=== PATIENT | male | born 1940 | race Caucasian/White ===

== ENCOUNTER 2016-10-02 16:42 | Inpatient (IN) ==
--- NOTE | 2016-10-02 17:22 | Emergency Department Note ---
Dileep Dumont Brooke, am scribing for, and in the presence of, Beau Lerma MD 17:16 . Maria Guadalupe Dumont James D, MD, personally performed the services described in this documentation, ascribed by Mignon Falk in my presence, and it is both accurate and complete 717 . Arrival - Arrival Chief Complaint: Fever Stated Complaint: fever ED Nursing Triage Note: Transfer from [facility] ER for further evaluation of possible sepsis. c/o joint pain to right knee, hip, foot, hand and left elbow /hand. +subjective fever. Mode of Arrival: Stretcher Limitations: No Limitations Source: Patient, RN Notes Reviewed Time Seen by Provider: 10/02/16 17:10 - History of Present Illness HPI Narrative: Patient is a 75 year old male, brought into the ED by EMS from [facility], for further evaluation of sepsis. Patient went to [facility] with c/o right knee edema and right hip pain. Patient says the pain started Wednesday night. Patient temperature is currently 98.5 but he did have a temperature of 101.2 at [facility]. Patient's lower right leg is erythematous. He says he has also had a cough. He was given Cleocin prior to transfer. Patient has PMHx of HTN, afib, gout, and arthritis. Onset (ago): day(s) (3) Consistency: constant Allergies/Adverse Reactions: Allergies Allergy/AdvReac Type Severity Reaction Status Date / Time No Known Allergies Allergy Verified 10/02/16 16:53 Review of System - Review of System 12 point system: reviewed and no additional remarkable complaints except as stated - Review of System Constitutional: Present: fever Respiratory: Absent: respiratory distress Musculoskeletal: Present: other (Right hip pain) Skin: Present: other (Right knee edema and right lower leg erythema). Absent: rash Medical,Surgical,& Family Hx - Medical History Cardio: History of: Cardiac Dysrhythmia (A-fib), Hypertension Rheumatology: History of;: Gout Musculoskeletal: History of: Musculoskeletal Problems (Arthritis) - Surgical History Abdominal Surgeries: Surgical HX of: Hernia Repair - Social History Smoking Status: Never smoker Frequency of Alcohol Use: Occasionally Type of Drug Use: None Exam Vital Signs: Vital Signs Temperature 98.5 F 10/02/16 16:42 Pulse Rate 105 H 10/02/16 16:42 Respiratory Rate 20 10/02/16 16:42 Blood Pressure 113/73 10/02/16 16:42 O2 Sat by Pulse Oximetry 100 10/02/16 16:42 GENERAL: This is a chronically ill-appearing white male in no apparent distress. VITAL SIGNS: Reviewed HEENT: Head is atraumatic and normocephalic. Pupils are equal round react to light. Extraocular movements are intact. Oropharynx is benign with moist mucous membranes. NECK: Neck is soft and supple without tenderness. There are no masses. There is no lymphadenopathy. LUNGS: Lungs are clear to auscultation. Chest rises symmetrically. There is no chest wall tenderness. CV: Heart is regular rate and rhythm without murmurs rubs or gallops. ABDOMEN: Abdomen is soft, nontender to palpation. There are no abdominal abnormal masses palpated. There is no organomegaly. Bowel sounds are present and active. SKIN: Skin is warm and dry. Patient has erythema of the pretibial area of the right lower extremity. EXTREMITIES: Patient has swelling about the right knee and some tenderness to palpation. The patient has reproducible pain with passive range of motion. Patient holds his right knee in slight flexion. NEUROLOGIC: Awake alert and oriented 4. Cranial nerves II through XII are grossly intact. Motor is 4 over 5 in all extremities bilaterally. Course - Consultations Consultation #1: Discussed with hospitalist and will be admitted to their service. Time: 17:21 Results - Labs Lab Results: I have reviewed the patients labs - Diagnostic Findings Procedure: Chest x-ray: image reviewed by me, X-ray: image reviewed by me ( Right knee x-ray: Right hip x-ray:) Disposition Clinical Impression: SIRS (systemic inflammatory response syndrome), Possible gout, Elevated brain natriuretic peptide (BNP) level, Elevated lactate Case discussed with: patient Disposition: Still a Patient Condition: Stable
--- NOTE | 2016-10-02 17:51 | XRay Report ---
Right knee, 2 views History his right knee effusion swelling and fever There is a suprapatellar effusion There are moderate degenerative changes with patellofemoral and medial compartment joint space loss. There is question of chondrocalcinosis Prominent vascular calcifications present No acute fracture or aggressive periosteal reaction seen. No focal lytic areas identified. Impression: 1. Moderate degenerative changes 2. Moderate suprapatellar effusion 3. Prominent atherosclerotic changes 4. Questionable chondrocalcinosis PROCEDURE INTERPRETED AT [facility] DEPARTMENT OF RADIOLOGY Final Report Signed by: Dr. Ct Sharpe
--- NOTE | 2016-10-02 17:52 | XRay Report ---
Right hip, 2 views History is right hip pain There is mild osteophyte with minimal superior joint space loss Vascular calcifications present. No acute fracture or dislocation is seen Impression: Mild osteoarthritis PROCEDURE INTERPRETED AT [facility] DEPARTMENT OF RADIOLOGY Final Report Signed by: Dr. Ct Sharpe
--- NOTE | 2016-10-02 17:54 | XRay Report ---
History is fever Comparison 03/23/2012 The cardiac silhouette is enlarged. Patient is rotated No consolidated infiltrate is seen Impression: Moderate cardiomegaly PROCEDURE INTERPRETED AT [facility] DEPARTMENT OF RADIOLOGY Final Report Signed by: Dr. Ct Sharpe
--- NOTE | 2016-10-02 18:41 | Hospitalist History & Physical ---
Assessment and Plan - Time spent with patient Time spent with patient: Greater than 30 minutes (1) SIRS (systemic inflammatory response syndrome) Status: Acute Assessment and plan: On exam, patient's temperature has reduced to 98.5, heart rate remains tachypneic at 110, respiratory rate is greater than or equal to 20, and patient' s lower extremities are warm and flushed. Lactic acid was 4.5 and [facility]. Repeat lactic acid at [place] is 3.0. BP 89/55. We will keep IV fluids at maintenance. Add zosyn IV. Current Visit: Yes (2) Elevated brain natriuretic peptide (BNP) level Status: Acute Assessment and plan: BNP at [facility] is 5317. Continue diuresis. Current Visit: Yes (3) Hypertension Status: Acute Assessment and plan: Continue home meds. Hold on any antihypertensives for systolic below 110. Current Visit: Yes (4) Gout Status: Acute Assessment and plan: Check uric acid level. Patient is on allopurinol and Colcrys. Will manage accordingly. If uric acid indicate acute flare, will start Solu-Medrol 60 IV Q4H. Current Visit: Yes (5) Cellulitis of right lower extremity Status: Acute Assessment and plan: Continue Cleocin Current Visit: Yes (6) Rheumatoid arthritis Status: Acute Current Visit: Yes History of Present Illness Chief complaint: sepsis History of present illness: Mr. Borrero is a 75 year old white male with a past medical history significant for hypertension, gout, rheumatoid arthritis who presents to [place] ED via EMS as a transfer from [facility] for further evaluation of sepsis. The patient reports that he has been experiencing right lower extremity edema since Wednesday night which progressed to cellulitis with associated pain by morning. He notes that his left leg began swelling this morning. Patient reports that he went to the [facility] on for evaluation and treatment. Patient has apparent temp of 101.2 at [facility]. Patient denies headache, chest pain, abdominal pain, change in bowel habits or appetite, syncopal episode. Patient notes that he does have right knee and hip pain as well as left elbow and left wrist pain. External facility records lab work revealed: ProBNP of 5317, BUN 18, creatinine 1.8, WBC 11.1, hemoglobin 13.9, hematocrit 39.7. Urinalysis positive for nitrates, WBCs, RBCs , bacteria trace mucus. Right hip x-ray reveals mild osteoarthritis. Chest x- ray reveals cardiomegaly. On exam, patient's temperature has reduced to 98.5, heart rate remains tachypneic at 110, respiratory rate is greater than or equal to 20, and patient's lower extremities are warm and flushed. Case been discussed with Dr. Blank, ER physician, and Dr. Cancino, admitting physician and the patient will be admitted to the hospital medicine service for further evaluation and treatment. Patient is a full code. Medications have been reviewed and reconciled. Home Medications Medication Instructions Recorded Confirmed Type Allopurinol [Allopurinol] 100 mg PO DAILY 10/02/16 10/02/16 History Colchicine [Colcrys] 1.8 mg PO DAILY 10/02/16 10/02/16 History Furosemide Tab [Lasix Tab] 20 mg PO QOTHER DAY 10/02/16 10/02/16 History Hydrocodone/Acetaminophen [Lorcet 1 each PO QID 10/02/16 10/02/16 History Hd 10-325 mg Tablet] Magnesium Gluconate Tab 1,000 mg PO TID 10/02/16 10/02/16 History Meloxicam [Meloxicam] 7.5 mg PO BID 10/02/16 10/02/16 History Metoprolol Tartrate 50 mg PO BID 10/02/16 10/02/16 History Potassium Chloride 10 meq PO BID 10/02/16 10/02/16 History Allergies Allergy/AdvReac Type Severity Reaction Status Date / Time No Known Allergies Allergy Verified 10/02/16 16:53 Medical,Surgical,& Family Hx - Medical History Cardio: History of: Cardiac Dysrhythmia (A-fib), Hypertension Rheumatology: History of;: Gout Musculoskeletal: History of: Musculoskeletal Problems (Arthritis) - Surgical History Abdominal Surgeries: Surgical HX of: Hernia Repair - Family History Family History: Reports;: Family Heart Disease, Family Hypertension - Social History Smoking Status: Never smoker Frequency of Alcohol Use: Occasionally Type of Drug Use: None Marital Status: Single Lives With:: Alone Functional capacity: independent ambulation - Constitutional Constitutional: Present: fever(s). Absent: chills, headache(s), night sweats, weakness - EENT Eyes: Absent: blurry vision, loss of vision Ears: Absent: decreased hearing Nose, mouth and throat: Absent: headache(s), neck pain, sore throat - Cardiovascular Cardiovascular: Present: edema. Absent: chest pain at rest, dyspnea, dyspnea on exertion, palpitations - Respiratory Respiratory: Absent: cough, dyspnea, dyspnea on exertion - Gastrointestinal Gastrointestinal: Present: nausea. Absent: abdominal pain, constipation, diarrhea - Genitourinary Genitourinary: Absent: difficulty urinating, dysuria, flank pain - Musculoskeletal Musculoskeletal: Present: joint swelling, limited range of motion. Absent: arthralgias, back pain - Neurological Neurological: Present: abnormal gait, numbness. Absent: confusion, syncope - Psychiatric Psychiatric: Absent: anxiety, depression - Endocrine Endocrine: Present: fatigue. Absent: cold intolerance, heat intolerance - Hematologic/Lymphatic Hematologic/Lymphatic: Present: easy bruising. Absent: easy bleeding Exam - Constitutional Vitals: Period Temp Pulse Resp BP Sys/Justin Pulse Ox Last 24 Hr 98.5 F-98.5 F 100-112 20-20 104-123/51-73 98-100 Exam: General appearance: normal weight, no acute distress - Head Head exam: Present: normocephalic, atraumatic - Eye Eye exam: Present: EOMI. Absent: conjunctival injection, nystagmus Pupils: Present: BRIANA, normal accommodation - ENT ENT exam: Present: normal exam, normal external ear exam - Neck Neck exam: Present: normal inspection. Absent: lymphadenopathy, tenderness, thyromegaly - Respiratory Respiratory exam: Present: clear to auscultation bilaterally. Absent: rales, rhonchi, wheezes - Cardiovascular Cardiovascular exam: Present: Tachycardia. Absent: carotid bruit, gallop, rubs - GI/Abdominal GI/Abdominal exam: Present: normal bowel sounds. Absent: ascites, distended, mass - Extremities Exam Extremities exam: Present: Cellulitis of the right lower extremity, venous stasis of the left lower extremity, warm and edematous right knee, tophi present on hands bilaterally. - Back Exam Back exam: Absent: CVA tenderness (L), CVA tenderness (R) - Neurological Exam Neurological exam: Present: alert, oriented X3 - Psychiatric Psychiatric exam: Present: normal affect, normal mood - Skin Skin exam: Present: Erythematous, warm, dry
[2016-10-02] MEDS ORDERED: LACTULOSE 20 GM/30 ML UDCUP PO PRN (19:03)
[2016-10-02] MEDS ORDERED: ACETAMINOPHEN 325 MG TABLET PO PRN (19:03)
[2016-10-02] MEDS ORDERED: ONDANSETRON 4 MG/2 ML VIAL IV PRN (19:03)
[2016-10-02] MEDS ORDERED: DOCUSATE SODIUM 100 MG CAPSULE PO PRN (19:03)
[2016-10-02] MEDS ORDERED: ZALEPLON 5 MG CAPSULE PO PRN (19:03)
[2016-10-02] MEDS ORDERED: SODIUM CHLORIDE 0.9% 2,650 ML IV ONE (19:03)
[2016-10-02] MEDS: SODIUM CHLORIDE 0.9% 1,000 ML IV SCH (19:52)
[2016-10-02] MEDS: MORPHINE 2 MG/1 ML SYRINGE IV PRN (20:27)
[2016-10-02] MEDS: METOPROLOL TARTRATE 50 MG TABLET PO SCH (20:29)
[2016-10-02] MEDS: MELOXICAM 7.5 MG TABLET PO SCH (20:29)
[2016-10-02] MEDS: MAGNESIUM GLUCONATE 500 MG TABLET PO SCH (20:29)
[2016-10-02 20:59] LABS: Calcium 6.6 MG/DL (8.5-10.1); Osmolality,Calculated 268.2 MOS/KG (273-304); Potassium 3.2 MMOL/L (3.5-5.1)
[2016-10-02] MEDS: CLINDAMYCIN INJ 600 MG in PREMIX 1 EACH IV SCH (21:00)
[2016-10-02] MEDS: POTASSIUM CHLORIDE 10 MEQ TABLET PO SCH (21:02)
[2016-10-02] MEDS: PIPERACILLIN/TAZOBACTAM 3,375 MG in SODIUM CHLORIDE 0.9% 100 ML IV SCH (21:06)
[2016-10-02] MEDS ORDERED: CALCIUM GLUCONATE 2,000 MG in SODIUM CHLORIDE 0.9% 100 ML IV PRN (21:13)
[2016-10-02] MEDS ORDERED: SODIUM CHLORIDE 0.9% 1,000 ML IV ONE (22:20)
[2016-10-03] MEDS: CLINDAMYCIN INJ 600 MG in PREMIX 1 EACH IV SCH ×4 (01:47→20:38)
[2016-10-03] MEDS: MORPHINE 2 MG/1 ML SYRINGE IV PRN ×4 (01:50→19:47)
[2016-10-03] MEDS: methylPREDNISolone SOD SUC 40 MG/1 ML VIAL IV SCH ×4 (03:31→20:34)
[2016-10-03 03:49] LABS: Basophils % 0.4 % (0.0-0.8); Eosinophils # 0.1 10*3/uL (0.0-0.87); Eosinophils % 1.6 % (0.00-10.9); Hematocrit 32.5 VOL% (42.0-52.0); Hemoglobin 11.4 GM/DL (14.0-18.0); Immature Granulocytes % 0.7 %; Immature Granulocytes Absolute 0.05 #; Lymphocytes # 0.9 10*3/uL (1.4-4.0); Lymphocytes % 12.9 % (21.2-54.2); Mean Corpuscular HGB Conc 35.1 GM/DL (32-36); Mean Corpuscular Hemoglobin 35 PG (27-34); Mean Corpuscular Volume 100.6 FL (87-102); Mean Platelet Volume 10.9 FL (9.6-12.0); Monocytes # 0.8 10*3/uL (0.11-0.8); Monocytes % 10.7 % (1.7-12.7); Neutrophils # 5.2 10*3/uL (1.4-7.4); Neutrophils % 73.7 % (38.7-73.9); Platelet Count 122 T/CUMM (130-400); Red Blood Count 3.23 MC/CUMM (3.8-5.5); Red Cell Distribution Width 13.4 % (9.3-17.3)
[2016-10-03 04:29] LABS: ABG Base Excess -2.2 MMOL/L (-2.5-2.5); ABG HCO3 22.5 MMOL/L (20-26); ABG Oxygen Saturation 94.7 % (95-100); ABG PCO2 33.6 MM HG (35-48); ABG PH 7.417 (7.35-7.45); ABG PO2 73.2 MM HG (80-95); ABG TCO2 19.4 MMOL/L (23-27); Allen Test Positive; Pt O2 Delivery Device Room Air
[2016-10-03 04:31] LABS: Blood Urea Nitrogen 16 MG/DL (7-18); Calcium 6.4 MG/DL (8.5-10.1); Cholesterol < 50 MG/DL (50-200); Glucose 93 MG/DL (74-106); HDL Cholesterol 12 MG/DL (40-60); Osmolality,Calculated 273.8 MOS/KG (273-304); Potassium 3.1 MMOL/L (3.5-5.1); Risk Ratio 4.17; Sodium 137 MMOL/L (136-145); Triglycerides 71 MG/DL (2-150); VLDL CHOLESTEROL 14.2 MG/DL
[2016-10-03] MEDS: PIPERACILLIN/TAZOBACTAM 3,375 MG in SODIUM CHLORIDE 0.9% 100 ML IV SCH ×3 (04:50→15:52)
[2016-10-03] MEDS: SODIUM CHLORIDE 0.9% 1,000 ML IV SCH ×2 (06:14→09:55)
[2016-10-03] MEDS ORDERED: MAGNESIUM SULF RIDER 4 GM in PREMIX 1 EACH IV PRN (08:56)
[2016-10-03] MEDS ORDERED: ALLOPURINOL 100 MG TABLET PO SCH (09:00)
[2016-10-03] MEDS: POTASSIUM CHLORIDE 10 MEQ TABLET PO SCH ×3 (09:37→20:39)
[2016-10-03] MEDS: COLCHICINE 0.6 MG TABLET PO SCH ×2 (09:37→11:38)
[2016-10-03] MEDS: METOPROLOL TARTRATE 50 MG TABLET PO SCH ×3 (09:38→20:40)
[2016-10-03] MEDS: PANTOPRAZOLE 40 MG TABLET PO SCH ×2 (09:38→11:39)
[2016-10-03] MEDS: MAGNESIUM GLUCONATE 500 MG TABLET PO SCH ×4 (09:38→20:40)
[2016-10-03] MEDS: MELOXICAM 7.5 MG TABLET PO SCH (09:38)
[2016-10-03] MEDS: MAGNESIUM SULF RIDER 2 GM in PREMIX 1 EACH IV PRN ×2 (09:50→11:35)
--- NOTE | 2016-10-03 10:46 | XRay Report ---
History is Keofeed tube placement Keofeed tube has been placed the tip in the distal stomach. The remainder of the exam is limited by technique with cardiomegaly Impression: Keofeed tube tip in the distal stomach PROCEDURE INTERPRETED AT [facility] DEPARTMENT OF RADIOLOGY Final Report Signed by: Dr. Ct Sharpe
[2016-10-03] MEDS: SODIUM CHLOR 0.9% KCL 40 MEQ 40 MEQ/1,000 ML BAG IV SCH (11:36)
[2016-10-03] MEDS: POTASSIUM CHLORIDE RIDER 10 MEQ in PREMIX 1 EACH IV PRN ×4 (11:46→16:32)
--- NOTE | 2016-10-03 12:14 | Hospitalist Progress Note ---
Assessment and Plan (1) Dysphasia Status: Acute Assessment and plan: Sounds like patient has had esophageal stricture. Will ask Dr. Ramachandran see him today Current Visit: Yes (2) Septic shock Status: Acute Assessment and plan: Resolved. Patient had elevated lactic acid on admission and was mildly hypotensive on admission. I see no evidence of cellulitis in his right lower extremity today. We will continue the clindamycin. He does have severely bad gout but I do not see any secondary infections. Current Visit: Yes (3) Gout Status: Acute Assessment and plan: Continue colchicine and steroids. Current Visit: Yes (4) Rheumatoid arthritis Status: Acute Assessment and plan: Currently not on medications for rheumatoid arthritis. Current Visit: Yes (5) Cellulitis of right lower extremity Status: Acute Assessment and plan: No evidence of cellulitis seen today continue clindamycin. Current Visit: Yes (6) Hypokalemia Status: Acute Assessment and plan: Replace and recheck at 1800 Current Visit: Yes (7) Hypocalcemia Status: Acute Assessment and plan: Another 2 g of calcium gluconate will recheck in a.m. Current Visit: Yes (8) Hypomagnesemia Status: Acute Assessment and plan: We will give him 4 g today and recheck in a.m. Current Visit: Yes (9) Thrombocytopenia Status: Acute Assessment and plan: PTT, PT, INR, d-dimer, fibrinogen, will check abdominal ultrasound and ammonia level. Patient mentally does not seem extremely alert Current Visit: Yes Hospitalist: Subjective Interval history: Patient is having difficulty swallowing anything feels like it gets stuck on the way down specially with food not necessarily with water. Nurses feel that he is at risk for aspiration and I agree. We have made him n.p.o. and placed to Kaopectate. We will consult Dr. Ramachandran today for possible stricture. But his potassium and magnesium are very low. Patient was admitted for cellulitis but I see no evidence of cellulitis but he does have extremely bad gout. Exam - Constitutional Vitals: Period Temp Pulse Resp BP Sys/Justin Pulse Ox Last 24 Hr 97.8 F-98.9 F 7-112 16-20 99-123/51-73 93-100 Exam: Heart Rate-[RRR] Lungs-[CTAB] GI-[+bs soft, NT] Ext-[no edema] Neuro [Motor 5/5], [alert and oriented times 2] psych [normal mood and flat affect] General [no acute distress] Results - Labs CBC & BMP: 10/03/16 03:09 10/03/16 03:09 Lab Results: I have reviewed the past 24 hour labs - Diagnostic Findings Procedure: Chest x-ray: report reviewed by me (Cardiomegaly, keofed is in good place)
--- NOTE | 2016-10-03 12:47 | Gastrointestinal Consult Note ---
Assessment and Plan - Time spent with patient Time spent with patient: Greater than 30 minutes (1) Dysphagia Status: Acute Current Visit: Yes (2) Other specified counseling Status: Acute Current Visit: Yes History of Present Illness History of present illness: Mr. Borrero is a 75 year old male Home Medications Medication Instructions Recorded Confirmed Type Allopurinol [Allopurinol] 100 mg PO DAILY 10/02/16 10/02/16 History Colchicine [Colcrys] 1.8 mg PO DAILY 10/02/16 10/02/16 History Hydrocodone/Acetaminophen [Lorcet 1 each PO QID 10/02/16 10/02/16 History Hd 10-325 mg Tablet] Magnesium Gluconate Tab 1,000 mg PO TID 10/02/16 10/02/16 History Meloxicam [Meloxicam] 7.5 mg PO BID 10/02/16 10/02/16 History Metoprolol Tartrate 50 mg PO BID W/MEALS 10/02/16 10/02/16 History Potassium Chloride 10 meq PO BID 10/02/16 10/02/16 History Allergies Allergy/AdvReac Type Severity Reaction Status Date / Time No Known Allergies Allergy Verified 10/02/16 16:53 Medical,Surgical,& Family Hx - Medical History Cardio: History of: Cardiac Dysrhythmia (A-fib), Hypertension Rheumatology: History of;: Gout Musculoskeletal: History of: Musculoskeletal Problems (Arthritis) - Surgical History Abdominal Surgeries: Surgical HX of: Hernia Repair - Family History Family History: Reports;: Family Heart Disease, Family Hypertension - Social History Smoking Status: Never smoker Frequency of Alcohol Use: Occasionally Type of Drug Use: None Exam - Constitutional Vitals: Period Temp Pulse Resp BP Sys/Justin Pulse Ox Last 24 Hr 97.8 F-98.9 F 7-112 16-20 99-123/51-73 93-100 Results - Labs CBC & BMP: 10/03/16 03:09 10/03/16 03:09 Note Addendum: PLEASE NOTE -- automatic citation of patient information is unavoidable in this electronic note. I have made a reasonable effort to review the information cited , but it is not a part of my evaluation, impression, or recommendation unless specifically discussed in the dictated text that follows. As well, voice recognition software was used in the creation of this clinical note. Reasonable effort was made to identify and correct gross errors. Despite proofreading, errors in head stock operator may be present, including nonsense verbiage at times. If you encounter such an error, please contact me at for discussion and correction. -- Duarte Chief complaint: dysphagia History of present illness: This is a new patient, a 75-year-old male seen by consultation for evaluation of dysphagia. The patient is admitted to the hospitalist service under the care of Dr. Ray with a primary diagnosis of systemic inflammatory response. The patient was admitted last evening through the emergency department via transport from [facility] with a ostensible diagnosis of sepsis and with primary complaint of swelling in the right knee and pain in the right hip. Evaluation at that time revealed right lower extremity edema and tenderness, elevated BNP, elevated uric acid, leukocytosis, and possible urinalysis. The patient was admitted and therapy was started against these multiple findings. Today, the patient has reported dysphagia to solid at breakfast. He has not had this problem before, neither does he report a history of esophageal reflux. He thinks he has had upper endoscopy in the past , down at [facility], but does not remember any particulars. He does not think that he has had esophageal dilation in the past. At present, he is comfortable, handling his secretions without difficulty, and has a nasogastric tube in place. Patient denies night sweats, rigors, headache, dizziness, neck pain, visual changes, redness of the eyes, difficulty chewing, chest pain, shortness of breath, abdominal pain, weight loss, hematemesis, diarrhea, hematochezia, melena , proctalgia, constipation, change in bowel pattern generally, dysuria, skin changes, temperature regulation issues, flushing, easy bleeding/bruising, mental status change, yellowing of the eyes/skin, allergies to food or drug, family history of gastrointestinal cancer and colon polyps, and other complaints in general. Review of systems: 12 point review of systems was negative except as documented above. Outpatient medications: allopurinol, meloxicam, colchicine, metoprolol, magnesium gluconate, potassium chloride, hydrocodone/acetaminophen Inpatient medications: Tylenol, calcium gluconate, clindamycin, colchicine, Colace, [place], lactulose, magnesium gluconate, magnesium sulfate, Solu-Medrol, metoprolol morphine sulfate, Zofran, Protonix, Zosyn, [place]ata Past Medical History: atrial fibrillation, hypertension, gout, rheumatoid arthritis Social history: negative tobacco. Occasional alcohol Family history: no gastrointestinal cancers Physical examination: Vital Signs: Current vital signs reviewed and documented above. General Appearance: well-appearing. Not acutely ill. Head: Normocephalic. Neck: Palpation of the neck revealed no abnormalities. Eyes: No scleral icterus. No scleral injection. No conjunctival pallor. Oral Cavity: Odor of breath was normal. No drooling was observed. Lips showed no abnormalities. Floor of the mouth showed no abnormalities. Pharynx: Oropharynx was normal. Lungs: Respiration rhythm and depth was normal. Cardiovascular: Heart rate and rhythm were normal. No murmurs were appreciated. Abdomen: abdomen was not distended. Abdominal palpation revealed no tenderness and no hepatosplenomegaly. Ascites was not discovered. Abdominal auscultation revealed positive bowel sounds. Musculoskeletal System: Musculoskeletal system was grossly normal. Neurological: level of consciousness was normal. Speech was normal. Skin: General appearance was normal. Color and pigmentation were normal. No skin lesions. Laboratory: white blood count 7.0, hemoglobin 11.4, hematocrit 32.5, platelets 122, lactate 1.6 Radiology: reviewed Impressions: 1. Dysphagia -- the differential diagnosis includes hiatus hernia, esophageal ring, esophagitis, esophageal dyskinesia, and others. I recommend barium swallow for evaluation of gross anatomy and likely upper endoscopy based on funding without examination. In the interim, I recommend clear liquids only. Intravenous proton pump inhibitor is reasonable. We will follow up with further recommendations pending findings of these exams. 2. Other specified counseling -- The patient was seen for greater than 30 minutes. The patient was counseled for greater than 50% of this time regarding differential diagnosis, likely diagnosis, diagnostic and therapeutic alternatives, risks/benefits/alternatives of medications and procedures, and plan of care generally. The patient expressed understanding and wishes to proceed. Recommendations: -- barium swallow -- intravenous proton pump inhibitor -- clear liquid diet as tolerated -- upper endoscopy pending the result of radiology -- thank you for this consultation. We will follow with you
[2016-10-03] MEDS ORDERED: CALCIUM GLUCONATE 2,000 MG in SODIUM CHLORIDE 0.9% 100 ML IV ONE (13:00)
[2016-10-03] MEDS ORDERED: GLUCAGON 1 MG VIAL IM PRN (13:14)
[2016-10-03] MEDS ORDERED: DEXTROSE 50% 25 GM/50 ML VIAL IV PRN (13:14)
[2016-10-03 13:34] LABS: INR 1.4; PT Patient Result 14.9 SECS
[2016-10-03 13:35] LABS: Partial Thromboplastin Time 42.9 SECS (0-40)
[2016-10-03 13:39] LABS: D-Dimer 4.4 MG/L FEU
--- NOTE | 2016-10-03 13:54 | Ultrasound Report ---
Abdomen ultrasound complete. Indication: Cirrhosis. Comparison: March 09, 2012. The liver is borderline enlarged with a length of 19 cm. There is prominent fatty infiltration of the liver. No ascites is seen. No focal liver lesions are identified. There is no biliary ductal dilatation. The common duct measures 5.5 mm. No gallstones are seen. The gallbladder is mildly contracted. No definite wall thickening or fluid around the gallbladder. The spleen measures 7 x 12 x 8 cm, with a splenic index of 672, upper limits of normal. The IVC is obscured by bowel gas. Visualized portions of the abdominal aorta appear normal. No pancreatic abnormality is identified. The kidneys are normal in size, location, and contour, without focal lesion or hydronephrosis. Impression: Mild enlargement of the liver, with fatty infiltration. The Ultrasound images were captured and stored. PROCEDURE INTERPRETED AT [facility] DEPARTMENT OF RADIOLOGY Final Report Signed by: Dr. Radha Sharpe
[2016-10-03] MEDS: PANTOPRAZOLE 40 MG VIAL IV SCH (14:25)
[2016-10-04] MEDS: PIPERACILLIN/TAZOBACTAM 3,375 MG in SODIUM CHLORIDE 0.9% 100 ML IV SCH ×3 (00:01→17:56)
[2016-10-04] MEDS ORDERED: ALUMINUM/MAGNES/SIMETH MAX STR 30 ML UDCUP PO PRN (01:29)
[2016-10-04] MEDS: SODIUM CHLOR 0.9% KCL 40 MEQ 40 MEQ/1,000 ML BAG IV SCH ×4 (01:45→20:18)
[2016-10-04] MEDS: CLINDAMYCIN INJ 600 MG in PREMIX 1 EACH IV SCH ×4 (01:48→20:19)
[2016-10-04] MEDS: methylPREDNISolone SOD SUC 40 MG/1 ML VIAL IV SCH ×4 (03:11→20:29)
[2016-10-04] MEDS: MORPHINE 2 MG/1 ML SYRINGE IV PRN ×5 (04:05→19:23)
[2016-10-04 04:28] LABS: Hemoglobin 11.3 GM/DL (14.0-18.0); Immature Granulocytes % 0.9 %; Immature Granulocytes Absolute 0.03 #; Lymphocytes # 0.4 10*3/uL (1.4-4.0); Lymphocytes % 11.6 % (21.2-54.2); Mean Corpuscular HGB Conc 34.2 GM/DL (32-36); Mean Corpuscular Hemoglobin 35 PG (27-34); Mean Corpuscular Volume 102.5 FL (87-102); Monocytes # 0.2 10*3/uL (0.11-0.8); Neutrophils # 2.8 10*3/uL (1.4-7.4); Neutrophils % 82.5 % (38.7-73.9); Platelet Count 136 T/CUMM (130-400); Red Blood Count 3.22 MC/CUMM (3.8-5.5); Red Cell Distribution Width 13.1 % (9.3-17.3); White Blood Count 3.4 T/CUMM (4-12)
[2016-10-04 05:03] LABS: Magnesium 2.2 MG/DL (1.8-2.4); Osmolality,Calculated 283.8 MOS/KG (273-304); Potassium 4.1 MMOL/L (3.5-5.1)
[2016-10-04 06:15] LABS: Lymphocytes 10 % (20-55); Platelet Estimate Adequate; Segmented Neutrophils 83 % (50-85); Total Cells Counted 100
[2016-10-04] MEDS ORDERED: FUROSEMIDE 20 MG TABLET PO SCH (09:00)
[2016-10-04] MEDS: POTASSIUM CHLORIDE 10 MEQ TABLET PO SCH (09:10)
[2016-10-04] MEDS: COLCHICINE 0.6 MG TABLET PO SCH (09:10)
[2016-10-04] MEDS: MAGNESIUM GLUCONATE 500 MG TABLET PO SCH ×3 (09:11→20:22)
[2016-10-04] MEDS: METOPROLOL TARTRATE 50 MG TABLET PO SCH ×2 (09:11→20:22)
[2016-10-04] MEDS: PANTOPRAZOLE 40 MG VIAL IV SCH (09:12)
--- NOTE | 2016-10-04 10:32 | Fluoroscopy Report ---
History is dysphasia to solids 2 minutes and 15 seconds total fluoroscopy time utilized The patient was unable to swallow and upper the barium mixture to maximally distend the esophagus or stomach. Visualization also mildly limited by difficulties with patient positioning there are multiple nonpropulsive tertiary contractions throughout the esophagus with limited distention of the distal esophagus. There is some relatively persistent mild tapered relative incomplete distention of the distal 5 cm of the esophagus. No other persistent more focal stricture or obstruction seen. A tiny sliding hiatal hernia is present. No evidence of gastric outlet obstruction seen. No persistent gastric or duodenal fold thickening or ulceration identified. There is mild retained contrast in the esophagus. Patient was kept with the head elevated. Impression: 1. Presbyesophagus 2. Mild relative, tapered 5 cm long segment of incomplete distention of the distal esophagus throughout the procedure 3. Tiny sliding hiatal hernia PROCEDURE INTERPRETED AT [facility] DEPARTMENT OF RADIOLOGY Final Report Signed by: Dr. Ct Sharpe
--- NOTE | 2016-10-04 10:55 | Gastrointestinal Progress Note ---
Assessment and Plan - Time spent with patient Time spent with patient: Greater than 30 minutes (1) Dysphagia Status: Acute Current Visit: Yes (2) Abnormal findings on imaging test Status: Acute Current Visit: Yes (3) Other specified counseling Status: Acute Current Visit: Yes Gastroenterology - PN: Subj Interval history: PLEASE NOTE -- automatic citation of patient information is unavoidable in this electronic note. I have made a reasonable effort to review the information cited , but it is not a part of my evaluation, impression, or recommendation unless specifically discussed in the dictated text that follows. As well, voice recognition software was used in the creation of this clinical note. Reasonable effort was made to identify and correct gross errors. Despite proofreading, errors in pondman may be present, including nonsense verbiage at times. If you encounter such an error, please contact me at [phone] for discussion and correction. -- Duarte Chief complaint: dysphagia History of present illness: the patient is a 75-year-old male seen for follow- up of dysphagia. The patient has been tolerating a clear liquid diet. He underwent barium swallow today with finding of nonspecific stenosis in the distal esophagus. He reports feeling kind of rough at present with continued knee and hip pain. He is not having any nausea or vomiting. Review of systems: 12 point review of systems was negative except as documented above. Inpatient medications: Tylenol, calcium gluconate, clindamycin, colchicine, Colace, [place], lactulose, magnesium gluconate, magnesium sulfate, Solu-Medrol, metoprolol morphine sulfate, Zofran, Protonix, Zosyn, Sonata Physical examination: Vital Signs: Current vital signs reviewed and documented above. General Appearance: well-appearing. Not acutely ill. Head: Normocephalic. Neck: Palpation of the neck revealed no abnormalities. Eyes: No scleral icterus. No scleral injection. No conjunctival pallor. Oral Cavity: Odor of breath was normal. No drooling was observed. Lips showed no abnormalities. Floor of the mouth showed no abnormalities. Pharynx: Oropharynx was normal. Lungs: Respiration rhythm and depth was normal. Cardiovascular: Heart rate and rhythm were normal. No murmurs were appreciated. Abdomen: abdomen was not distended. Abdominal palpation revealed no tenderness and no hepatosplenomegaly. Ascites was not discovered. Abdominal auscultation revealed positive bowel sounds. Musculoskeletal System: Musculoskeletal system was grossly normal. Neurological: level of consciousness was normal. Speech was normal. Skin: General appearance was normal. Color and pigmentation were normal. No skin lesions. Laboratory: white blood count 3.4, hemoglobin 11.3, hematocrit 33.0, platelets 136, INR 1.4, PT 14.9 Radiology: Barium swallow, October 04, 2016 -- presbyesophagus; mild tapered 5 cm segment of incomplete distention at the distal esophagus; tiny hiatus hernia Impressions: 1. Dysphagia -- barium swallow demonstrates abnormal finding in the distal esophagus. I recommend CT of the neck and chest (contrast-enhanced if feasible from renal standpoint) for further characterization of same. We will plan upper endoscopy tomorrow for direct visualization. In the interim, I recommend clear liquids only. Intravenous proton pump inhibitor is reasonable. We will follow up with further recommendations pending findings of these exams. 2. Abnormal imaging of the esophagus -- this does not appear to be eccentric which argues against malignancy. The differential diagnosis includes esophageal this motility, fibrotic stenosis, and others. CT scan will help to better characterize and upper endoscopy will allow for the right visualization and possible dilation. 3. Other specified counseling -- The patient was seen for greater than 30 minutes. The patient was counseled for greater than 50% of this time regarding differential diagnosis, likely diagnosis, diagnostic and therapeutic alternatives, risks/benefits/alternatives of medications and procedures, and plan of care generally. The patient expressed understanding and wishes to proceed. Recommendations: -- contrast-enhanced CT (if feasible with current renal parameters) of the neck and chest -- intravenous proton pump inhibitor -- clear liquid diet as tolerated -- upper endoscopy tomorrow -- thank you for this consultation. Dr. Harris will assume G.I. care for this patient tomorrow. Exam (Progress Note) - Constitutional Vitals: Period Temp Pulse Resp BP Sys/Justin Pulse Ox Last 24 Hr 97.6 F-98.9 F 76-93 17-20 97-108/58-70 94-98 Results - Labs CBC & BMP: 10/04/16 02:31 10/04/16 02:31
--- NOTE | 2016-10-04 14:13 | Hospitalist Progress Note ---
Assessment and Plan (1) Dysphasia Status: Acute Assessment and plan: EGD in am, Barium swallow shows presbyesophagus with incomplete distention of distal esophagus, ct recommended by GI, Dr. Ramachandran Current Visit: Yes (2) Septic shock Status: Acute Assessment and plan: due to cellulitis which has now resolved continue the clindamycin. 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 Current Visit: Yes (5) Cellulitis of right lower extremity Status: Acute Assessment and plan: No evidence of cellulitis seen but continue clindamycin. Current Visit: Yes (6) Hypokalemia Status: Acute Assessment and plan: resolved Current Visit: Yes (7) Hypocalcemia Status: Acute Assessment and plan: improving with calcium gluconate, will check albumin Current Visit: Yes (8) Hypomagnesemia Status: Acute Assessment and plan: resolved Current Visit: Yes (9) Thrombocytopenia Status: Acute Assessment and plan: improved, workup normal Current Visit: Yes Hospitalist: Subjective Interval history: Patient's keofed was clogged up and I told the nurses they can remove it today. Patient's platelets were better today. Patient is not able to care for self at home and will need to go to rehab prior to returning home as he lives alone. Exam - Constitutional Vitals: Period Temp Pulse Resp BP Sys/Justin Pulse Ox Last 24 Hr 97.6 F-98.6 F 76-93 17-20 97-106/58-70 94-98 Exam: Heart Rate-[RRR] Lungs-[CTAB] GI-[+bs soft, NT] Ext-[no edema, extensive tophus gout and ra in [facility] ] Neuro [Motor 5/5], [alert and oriented times 2] psych [normal mood and flat affect] General [no acute distress] Results - Labs CBC & BMP: 10/04/16 02:31 10/04/16 02:31 Lab Results: I have reviewed the past 24 hour labs - Diagnostic Findings Procedure: Ultrasound: report reviewed by me (Fatty liver), X-ray: report reviewed by me, pending (. Swallow under fluoroscopy shows presence presbyesophagus with incomplete distention of the distal esophagus and small hiatal hernia)
[2016-10-04] MEDS: KETOCONAZOLE 2% CREAM 30 GM TUBE TOP SCH ×2 (14:34→20:41)
[2016-10-04] MEDS ORDERED: CALCIUM GLUCONATE 2,000 MG in SODIUM CHLORIDE 0.9% 100 ML IV ONE (15:00)
--- NOTE | 2016-10-04 16:30 | CT Report ---
History is dysphagia Axial images obtained with 2-D multiplanar reconstruction images also stored and interpreted 80 cc Omni 350 utilized No enlarged cervical nodes seen. Atherosclerotic changes present. No pharyngeal mucosal space mass identified. There are degenerative changes in the spine Impression: No acute pathology seen The CT exam was performed using one or more of the following dose reduction techniques: Automated exposure control, adjustment of the mA and/or kV according to patient size, or use of iterative reconstruction technique. PROCEDURE INTERPRETED AT [facility] DEPARTMENT OF RADIOLOGY Final Report Signed by: Dr. Ct Sharpe
--- NOTE | 2016-10-04 16:37 | CT Report ---
History is presbyesophagus, distal esophageal narrowing, dysphasia 80 cc Omni 350 utilized Comparison 03/09/2012 T5-7 mm scattered mediastinal nodes present. No larger than 1 cm nodes are seen. The heart is a moderate to severely enlarged. Minimal pericardial thickening or fluid present. There are small bilateral pleural effusions There is a mild patchy and minimally more confluent opacities in the left lower lobe with minimal dependent atelectasis in the posterior right lung base. There may be a minimal component of interstitial edema as well. Impression: 1. Small bilateral pleural effusions with suspected minimal interstitial edema 2. Minimal more focal patchy infiltrate/atelectasis in the left lower lobe 3. Moderate to severe cardiomegaly The CT exam was performed using one or more of the following dose reduction techniques: Automated exposure control, adjustment of the mA and/or kV according to patient size, or use of iterative reconstruction technique. PROCEDURE INTERPRETED AT [facility] DEPARTMENT OF RADIOLOGY Final Report Signed by: Dr. Ct Sharpe
[2016-10-04] MEDS: CARBOXYMETHYLCELLULOSE 1% OPH SOLN BOTH EYES SCH ×2 (17:47→20:24)
[2016-10-05] MEDS: PIPERACILLIN/TAZOBACTAM 3,375 MG in SODIUM CHLORIDE 0.9% 100 ML IV SCH ×3 (01:09→15:46)
[2016-10-05] MEDS: CLINDAMYCIN INJ 600 MG in PREMIX 1 EACH IV SCH ×4 (01:13→21:37)
[2016-10-05] MEDS: MORPHINE 2 MG/1 ML SYRINGE IV PRN ×3 (01:13→21:33)
[2016-10-05] MEDS: methylPREDNISolone SOD SUC 40 MG/1 ML VIAL IV SCH ×5 (02:51→21:27)
[2016-10-05] MEDS: SODIUM CHLOR 0.9% KCL 40 MEQ 40 MEQ/1,000 ML BAG IV SCH ×2 (04:49→15:47)
[2016-10-05 06:20] LABS: Hematocrit 34.2 VOL% (42.0-52.0); Hemoglobin 11.6 GM/DL (14.0-18.0); Immature Granulocytes % 0.9 %; Immature Granulocytes Absolute 0.03 #; Lymphocytes # 0.4 10*3/uL (1.4-4.0); Lymphocytes % 12.3 % (21.2-54.2); Mean Corpuscular HGB Conc 33.9 GM/DL (32-36); Mean Corpuscular Hemoglobin 35 PG (27-34); Mean Corpuscular Volume 102.4 FL (87-102); Mean Platelet Volume 11.4 FL (9.6-12.0); Monocytes # 0.2 10*3/uL (0.11-0.8); Monocytes % 5.7 % (1.7-12.7); Neutrophils # 2.6 10*3/uL (1.4-7.4); Neutrophils % 81.1 % (38.7-73.9); Platelet Count 120 T/CUMM (130-400); Red Blood Count 3.34 MC/CUMM (3.8-5.5); Red Cell Distribution Width 13.4 % (9.3-17.3); White Blood Count 3.2 T/CUMM (4-12)
[2016-10-05 06:47] LABS: Calcium 7.5 MG/DL (8.5-10.1); Magnesium 2.3 MG/DL (1.8-2.4); Osmolality,Calculated 292.1 MOS/KG (273-304); Potassium 4.5 MMOL/L (3.5-5.1)
[2016-10-05 06:54] LABS: Calcium 7.4 MG/DL (8.5-10.1); Osmolality,Calculated 290.3 MOS/KG (273-304); Phosphorous 2.4 MG/DL (2.5-4.9); Potassium 4.5 MMOL/L (3.5-5.1); Prealbumin 8.1 MG/DL (20-40)
[2016-10-05] MEDS: METOPROLOL TARTRATE 50 MG TABLET PO SCH ×2 (08:17→21:27)
[2016-10-05] MEDS: KETOCONAZOLE 2% CREAM 30 GM TUBE TOP SCH ×2 (08:17→21:26)
[2016-10-05] MEDS: MAGNESIUM GLUCONATE 500 MG TABLET PO SCH ×3 (08:17→21:27)
[2016-10-05] MEDS: PANTOPRAZOLE 40 MG VIAL IV SCH (08:18)
[2016-10-05] MEDS: CARBOXYMETHYLCELLULOSE 1% OPH SOLN BOTH EYES SCH ×3 (08:23→21:27)
--- NOTE | 2016-10-05 09:01 | EKG Report ---
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
--- NOTE | 2016-10-05 09:32 | Hospitalist Progress Note ---
Assessment and Plan (1) Dysphasia Status: Acute Assessment and plan: EGD in am, Barium swallow shows presbyesophagus with incomplete distention of distal esophagus, ct recommended by GI, Dr. 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; start tapering steroids Current Visit: Yes (4) Rheumatoid arthritis Status: Acute Current Visit: Yes (5) Cellulitis of right lower extremity Status: Acute Assessment and plan: on antibiotic; afebrile Current Visit: Yes (6) Hypokalemia Status: Acute Assessment and plan: repleted; monitor Current Visit: Yes (7) Hypomagnesemia Status: Acute Assessment and plan: resolved; continue to monitor Current Visit: Yes (8) Hypocalcemia Status: Acute Assessment and plan: replete; monitor Current Visit: Yes (9) Thrombocytopenia Status: Acute Assessment and plan: stable; monitor Current Visit: Yes Hospitalist: Subjective Interval history: Patient states that he wants to eat and will do so if he does not get the procedure done. He denies any other problems. He denies any SOB/CP/dysphagia/n, v. According to prior notes, patient will need rehab because he is unable to care for himself. Exam - Constitutional Vitals: Period Temp Pulse Resp BP Sys/Justin Pulse Ox Last 24 Hr 97.6 F-99.6 F 69-92 17-20 101-131/63-79 96-100 General appearance: no acute distress - Respiratory Respiratory exam: Present: clear to auscultation bilaterally - Cardiovascular Cardiovascular exam: Present: regular rate and rhythm - GI/Abdominal GI/Abdominal exam: Present: normal bowel sounds - Extremities Exam Extremities exam: Present: edema (chronic venous stasis changes in LE with very mild erythema of RLE), other - Neurological Exam Neurological exam: Present: oriented X3 Results - Labs CBC & BMP: 10/05/16 05:36 10/05/16 05:36
--- NOTE | 2016-10-05 10:18 | Case Mgmt Physician Query Form ---
TB Signs and Symptoms Screening ([place]) INSTRUCTIONS: To be completed annually on residents/staff with a significant Tuberculin Skin Test (TST) upon admission/hire or a prior significant TST. To be completed on all staff at hire. Please respond to each listed symptom with an (X) in either the "YES" or "NO" box. Do you currently have any of the following symptoms: YES NO ( ) (x ) A cough If yes, is it: ( ) Productive ( ) Non- productive ( ) ( x) Hemoptysis (spitting up blood) ( ) (x ) Chest pains ( ) (x ) Weight Loss ( ) (x ) Fever ( ) ( x) Night Sweats ( ) (x ) Weakness ( ) (x ) Loss of Appetite ( ) (x ) Difficulty Breathing If you answered YES" to any of the above questions, how long have symptoms been present? Comments: If you have any questions, please contact me . Thank you, Radha SHEETS Email: [email or web address] [facility]
[2016-10-05] MEDS ORDERED: CALCIUM GLUCONATE 1,000 MG in SODIUM CHLORIDE 0.9% 100 ML IV ONE (12:00)
[2016-10-05] MEDS ORDERED: LIDOCAINE 2% 5 ML VIAL ONE (12:56)
[2016-10-05] MEDS ORDERED: PROPOFOL 200 MG/20 ML VIAL IV ONE (12:56)
--- NOTE | 2016-10-05 12:57 | History and Physical Update ---
History and Physical Update - Physical Exam Mental Status: alert and oriented Heart: regular rate and rhythm Lung: clear to auscultation Abdomen: within normal limits Vitals: within normal limits History and Physical Changes: 75-year-old male has had recent dysphagia. On barium swallow nonspecific esophageal narrowing was noted.
--- NOTE | 2016-10-05 13:06 | Operative Note ---
Date of procedure: 10/05/16 Pre-op diagnosis: Dysphagia Procedure: Procedure: Esophagogastroduodenoscopy with bougie dilation esophagus Brief clinical abstract: Patient is a 75-year-old male who was noted recent dysphagia to solids. He had barium esophagram showing some nonspecific narrowing in the distal esophagus. Indication for procedure: Dysphagia Endoscopic findings:[After informed consent was obtained, the patient was placed in the left lateral decubitus position. The gastroscope was inserted in the upper esophagus under direct vision with no resistance encountered. Esophageal mucosa appeared normal to the distal third of the esophagus. For longitudinal ulcers were noted which extended for 5-6 cm and became confluent in the distal 1-2 cm of the esophagus with mild narrowing. The appearance of this was consistent with reflux etiology. A small 1 cm hiatal hernia was noted just distal to this. The endoscope was advanced in the stomach which was carefully examined including retroflexed view of the cardia and fundus with no abnormality seen. The pyloric channel, duodenal bulb, second and third portion of the duodenum had normal appearance. The endoscope was withdrawn and Good dilator size 52 Hebrew was inserted in the upper esophagus and advanced beyond the level of the GE junction with mild resistance encountered. A scant amount of blood was noted on the dilator afterwards. He had no chest pain. He appeared to tolerate the procedure well. 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 I will sign off. Please call if needed. Anesthesia: MAC Surgeon / Physician: Rajiv Harris Estimated blood loss: minimal Specimens: none sent Condition: stable Disposition: post procedure unit Results - Labs CBC & BMP: 10/05/16 05:36 10/05/16 05:36 Discharge Plan - Discharge Medications No Action Meloxicam [Meloxicam] 7.5 mg PO BID Allopurinol [Allopurinol] 100 mg PO DAILY Magnesium Gluconate Tab 1,000 mg PO TID Colchicine [Colcrys] 1.8 mg PO DAILY Potassium Chloride 10 meq PO BID Metoprolol Tartrate 50 mg PO BID W/MEALS Hydrocodone/Acetaminophen [Lorcet Hd 10-325 mg Tablet] 1 each PO QID - Follow Up or Referral - Forms/Instructions
--- NOTE | 2016-10-05 14:00 | Anesthesia Post-Op ---
Anesthesia Post OP - Post Ansesthetic Evaluation Patient seen in post op: Yes Resp: within normal limits CV: within normal limits Mental: within normal limits Temp: within normal limits [id number]: within normal limits Nausea and Vomiting: within normal limits Pain: within normal limits
[2016-10-05] MEDS ORDERED: TUBERCULIN SKIN TEST 0.1 ML SYRINGE INTRADERM ONE (14:51)
[2016-10-05] MEDS ORDERED: SKIN HEALING OINT (AQUAPHOR) 50 GM TUBE TOP PRN (15:20)
[2016-10-05] MEDS: PANTOPRAZOLE 40 MG TABLET PO SCH (21:27)
[2016-10-06] MEDS: PIPERACILLIN/TAZOBACTAM 3,375 MG in SODIUM CHLORIDE 0.9% 100 ML IV SCH ×2 (01:55→08:06)
[2016-10-06] MEDS: SODIUM CHLOR 0.9% KCL 40 MEQ 40 MEQ/1,000 ML BAG IV SCH ×3 (01:56→16:09)
[2016-10-06] MEDS: methylPREDNISolone SOD SUC 40 MG/1 ML VIAL IV SCH ×2 (04:19→09:10)
[2016-10-06] MEDS: MORPHINE 2 MG/1 ML SYRINGE IV PRN ×3 (04:32→22:01)
[2016-10-06 04:41] LABS: Hematocrit 32.9 VOL% (42.0-52.0); Hemoglobin 11.3 GM/DL (14.0-18.0); Immature Granulocytes % 1.3 %; Immature Granulocytes Absolute 0.04 #; Lymphocytes # 0.3 10*3/uL (1.4-4.0); Lymphocytes % 9.7 % (21.2-54.2); Mean Corpuscular HGB Conc 34.3 GM/DL (32-36); Mean Corpuscular Hemoglobin 35 PG (27-34); Mean Corpuscular Volume 102.5 FL (87-102); Mean Platelet Volume 11.4 FL (9.6-12.0); Monocytes # 0.3 10*3/uL (0.11-0.8); Monocytes % 8.1 % (1.7-12.7); Neutrophils # 2.6 10*3/uL (1.4-7.4); Neutrophils % 80.9 % (38.7-73.9); Platelet Count 135 T/CUMM (130-400); Red Blood Count 3.21 MC/CUMM (3.8-5.5); Red Cell Distribution Width 13.6 % (9.3-17.3); White Blood Count 3.2 T/CUMM (4-12)
[2016-10-06] MEDS: CLINDAMYCIN INJ 600 MG in PREMIX 1 EACH IV SCH ×4 (05:01→21:31)
[2016-10-06 05:08] LABS: Calcium 7.6 MG/DL (8.5-10.1); Osmolality,Calculated 295.1 MOS/KG (273-304); Potassium 4.5 MMOL/L (3.5-5.1)
[2016-10-06] MEDS: MAGNESIUM GLUCONATE 500 MG TABLET PO SCH ×3 (08:07→21:33)
[2016-10-06] MEDS: METOPROLOL TARTRATE 50 MG TABLET PO SCH ×2 (08:07→21:43)
[2016-10-06] MEDS: PANTOPRAZOLE 40 MG TABLET PO SCH ×2 (08:11→21:33)
[2016-10-06] MEDS: CARBOXYMETHYLCELLULOSE 1% OPH SOLN BOTH EYES SCH ×3 (08:11→22:02)
[2016-10-06] MEDS: KETOCONAZOLE 2% CREAM 30 GM TUBE TOP SCH ×2 (08:11→22:01)
--- NOTE | 2016-10-06 10:36 | Hospitalist Progress Note ---
Assessment and Plan (1) Dysphasia Status: Acute Assessment and plan: yesterday, he underwent EGD testing and it was significant for distal ulcerative esophagitis with stricture 2nd to GERD s/p dilatation. He had a barium swallow prior to EGD, and it showed non specific esophageal narrowing. Plan to give oral trial and continue PPI. Appreciate help by GI. Current Visit: Yes (2) Septic shock Status: Acute Assessment and plan: due to cellulitis which has now resolved continue the antibiotics Current Visit: Yes (3) Gout Status: Acute Assessment and plan: on colchicine and steroids; change from solumedrol to prednisone Current Visit: Yes (4) Cellulitis of right lower extremity Status: Acute Assessment and plan: on antibiotic; afebrile Current Visit: Yes (5) Hypokalemia Status: Acute Assessment and plan: repleted; monitor Current Visit: Yes (6) Hypomagnesemia Status: Acute Assessment and plan: resolved; continue to monitor; continue supplements Current Visit: Yes (7) Hypocalcemia Status: Acute Assessment and plan: mild; correct calcium is 8.4; monitor Current Visit: Yes (8) Thrombocytopenia Status: Acute Assessment and plan: resolved; monitor Current Visit: Yes (9) HARSHAD (acute kidney injury) Status: Acute Assessment and plan: likely 2nd to volume depletion and decreased PO; azotemia is improving; patient with mild AGMA; will give fluids and bicarbonate therapy; monitor Current Visit: Yes Hospitalist: Subjective Interval history: Patient underwent EGD on yesterday and was found to have distal ulcerative esophagitis with stricture 2nd to GERD s/p dilatation. Today, he states that he is ready to eat. He has his breakfast but has not started eating it yet. He notes some gas. Last bowel movement was a few hours ago. He denies any n/v. He states that he has gas because he needs to move around. He notes some weakness. Exam - Constitutional Vitals: Period Temp Pulse Resp BP Sys/Justin Pulse Ox Last 24 Hr 97.4 F-98.0 F 73-106 18-30 99-139/57-77 94-99 General appearance: no acute distress - Head Head exam: Present: normal inspection - Eye Eye exam: Present: EOMI Pupils: Present: BRIANA - Respiratory Respiratory exam: Present: clear to auscultation bilaterally - Cardiovascular Cardiovascular exam: Present: regular rate and rhythm - GI/Abdominal GI/Abdominal exam: Present: normal bowel sounds (not distended) - Extremities Exam Extremities exam: Present: other (+edema; chronic venous stasis changes in LE with very mild erythema of RLE) Results - Labs CBC & BMP: 10/06/16 04:22 10/06/16 04:22
[2016-10-06] MEDS ORDERED: SIMETHICONE CHEW 80 MG TABLET PO PRN (10:50)
[2016-10-06] MEDS: SODIUM ACETATE IV SCH (14:14)
[2016-10-06] MEDS: SODIUM CHLORIDE 0.9% IV SCH (14:14)
[2016-10-07] MEDS: SODIUM ACETATE IV SCH (01:10)
[2016-10-07] MEDS: SODIUM CHLORIDE 0.9% IV SCH (01:10)
[2016-10-07] MEDS: SODIUM CHLOR 0.9% KCL 40 MEQ 40 MEQ/1,000 ML BAG IV SCH ×2 (01:12→11:41)
[2016-10-07] MEDS: MORPHINE 2 MG/1 ML SYRINGE IV PRN ×2 (02:26→09:40)
[2016-10-07] MEDS: CLINDAMYCIN INJ 600 MG in PREMIX 1 EACH IV SCH ×2 (02:31→09:41)
[2016-10-07 05:42] LABS: Calcium 7.5 MG/DL (8.5-10.1); Magnesium 1.9 MG/DL (1.8-2.4); Potassium 3.7 MMOL/L (3.5-5.1)
[2016-10-07] MEDS ORDERED: predniSONE 20 MG TABLET PO SCH (09:00)
--- NOTE | 2016-10-07 09:26 | Discharge Summary ---
<Anjali Weberda - Last Filed: 10/07/16 09:02> Hospital Course - Hospital Course Hospital Course: This is a very pleasant 75-year-old male who presented to the ED at [facility] on October 02, 2016 as a lateral transfer from [facility] for the evaluation of sepsis. The patient has a very complex medical history significant for: Hypertension, gouty arthritis, and rheumatoid arthritis. The patient presented to the ED at [facility] with a chief complaint of right lower extremity edema. The patient reported the onset of pain on the night prior to presentation, however the extremity worsened on the morning of presentation. In addition, the patient also reported that his left leg had started to swell also. He became concerned and presented to the ED at [facility] for further evaluation. At the time of ED presentation at [facility], the patient was evaluated and was noted to be febrile with a temperature of 101.2. Labs were immediately obtained which reported a pro BNP of 5317, BUN of 18, creatinine of 1.8, white blood cell count of 11.1, hemoglobin of 13.9, and hematocrit of 39.7. Urinalysis was also obtained there which was positive for nitrates, white blood cells, red blood cells, and bacteria trace mucus. In addition the patient complained of right leg pain; x-ray of the right hip was ordered which was significant for mild osteoarthritis. Chest x-ray was obtained which reported cardiomegaly. The patient was subsequently transferred to [facility] for continuation of care. At the time of ED presentation at [facility]; the patient was afebrile with a temperature noted at 98.5, he was tachycardic with a heart rate at 110, respiratory rate of 20. Upon examination, the patient's bilateral lower extremities were noted to be warm with profound erythema. Further radiographic assessment was performed; x-ray of the right knee was obtained which was significant for moderate degenerative changes, moderate suprapatellar effusion, prominent atherosclerotic changes, and questionable chondrocalcinosis. The patient's lactic acid level was noted at 3.0. The patient was subsequently admitted to the hospitalist services for continuation of care. The sepsis bundle was initiated. Empiric antibiotic coverage, electrolyte correction, and rehydration was immediately initiated. During the clinical encounter, the patient developed profound dysphasia, a nasogastric tube was placed ,and a gastroenterology consult was requested. The patient was seen and evaluated . A barium swallow study underwent subsequent reported nonspecific esophageal narrowing. On October 05, 2016, the patient underwent EGD under the direction of Dr. Rajiv Harris ; with significant findings of distal ulcerative esophagitis with associated stricture secondary to GERD status post dilatation and a small hiatal hernia. Protein-pump inhibitors were initiated. Trial oral feedings were initiated on yesterday. The patient tolerated trial feedings well. His condition has remained stable. He has not experienced any significant overnight events. Today, we feel that he is indeed appropriate for discharge to [facility] for continuation of care. This am, his left upper extremity was noted to be swollen, we will get a doppler USS to r/o DVT prior to sending him to the swing bed today. His vitals are also stable. Discharge Plan - Discharge Data Disposition: Swing Bed, Hos Based, [facility] - Discharge Medications New Docusate Sodium Cap [Colace Cap] 100 mg PO BID PRN capsule PRN Reason: Constipation Ketoconazole 2% Cream [Nizoral 2% Cream] 1 applic TOP BID applic Lactulose Liquid [Chronulac] 20 gm PO Q4H PRN PRN Reason: Constipation Metoprolol Tartrate Tab [Lopressor Tab] 50 mg PO BID tablet Pantoprazole Tab [Protonix Tab] 40 mg PO BID tablet Simethicone Chew Tab [Mylicon Chew Tab] 80 mg PO BID PRN tablet PRN Reason: Gas Skin Healing Oint (Aquaphor) [Aquaphor] 1 applic TOP PRN PRN applic PRN Reason: Dry Skin Acetaminophen Tab [Tylenol Tab] 650 mg PO Q4H PRN tablet PRN Reason: Fever, Headache, Mild Pain Carboxymethylcell 1% Oph Soln [Refresh Celluvisc] 1 drop BOTH EYES TID HYDROcodone/ACETAMIN 7.5-325 [Casanova 7.5-325] 1 tablet PO Q4H PRN #20 tablet PRN Reason: Pain Moderate (4-7) predniSONE TAB [PredniSONE] 40 mg PO DAILY tablet Amoxicillin/Clav Tab [Augmentin Tab] 875 mg PO BID #14 tablet Continue Meloxicam 7.5 mg PO BID Allopurinol 100 mg PO DAILY Magnesium Gluconate Tab 1,000 mg PO TID Colchicine [Colcrys] 1.8 mg PO DAILY Discontinued Potassium Chloride 10 meq PO BID Metoprolol Tartrate 50 mg PO BID W/MEALS Hydrocodone/Acetaminophen [Lorcet Hd 10-325 mg Tablet] 1 each PO QID - Follow Up or Referral - Forms/Instructions Exam - Constitutional Vitals: Period Temp Pulse Resp BP Sys/Justin Pulse Ox Last 24 Hr 96.5 F-98.2 F 80-98 18-20 111-127/76-87 93-100 Discharge Results Procedures and tests throughout hospitalization: Pending Orders 10/02/16 20:30 Blood Culture Stat 10/07/16 09:38 US venous doppler UE LT Stat Labs on day of discharge: Labs from last 24 hours 10/07/16 04:59 Sodium 143 Potassium 3.7 Chloride 112 H Carbon Dioxide 19 L Anion Gap 15.7 H BUN 23 H Creatinine 1.00 GFR Calculation 92 BUN/Creatinine Ratio 23.00 H Glucose 140 H Calculated Osmolality 290.0 Calcium 7.5 L Magnesium 1.9 Preliminary micro results at discharge 10/02/16 20:30 Blood Culture - Preliminary Blood No growth at 3 days 10/02/16 20:25 Blood Culture - Preliminary Blood No growth at 3 days DS: Provider Date of admission: 10/02/16 17:20 Primary care physician: . No PCP Attending physician on admission: Nasir Rosario MD Consults: 10/02/16 19:05 Consult to Wound Care - [place] [CONS] Routine Reason for Wound Care: Wound Care Management Consult Comment: ulcer on left foot 10/03/16 10:55 Consult to Physician [CONS] Routine Comment: stricture Consulting Provider: James Ramachandran V When should Consulting Provider be notified: Now Person Notified: md aware Date Notified: 10/03/16 Time Notified: 12:13 Consult Notification Comment: 10/03/16 12:29 Consult to Dietitian [CONS] Routine Reason for Dietitian: TF-Initiate/Manage 10/04/16 14:12 Consult to Case Mgmt/Social Srvs [CONS] Routine Reason for Case Mgmt/Social Srvs: Rehab 10/04/16 16:06 Consult to Occupational Therapy [CONS] Routine Reason for Occupational Therapy: Evaluate and Treat Consult to Physical Therapy [CONS] Routine Reason for Physical Therapy: Evaluate and Treat 10/06/16 10:52 Consult to Occupational Therapy [CONS] Routine Reason for Occupational Therapy: Weakness Consult to Physical Therapy [CONS] Routine Reason for Physical Therapy: Weakness Consult to Physician [CONS] Routine Comment: Consulting Provider: 10/06/16 10:53 Consult to Occupational Therapy [CONS] Routine Reason for Occupational Therapy: Evaluate and Treat Discharging clinician: Angelika Weber CNP <Hina Quezada - Last Filed: 10/07/16 09:59> Hospital Course - Time spent with patient Time with patient DS: Greater than 30 minutes (Time spent:35mins) Diagnosis - Discharge Diagnosis (1) SIRS (systemic inflammatory response syndrome) Status: Acute (2) Hypertension Status: Acute (3) Gout Status: Acute (4) Rheumatoid arthritis Status: Acute (5) Cellulitis of right lower extremity Status: Acute (6) Dysphasia Status: Acute Discharge Plan - Discharge Data Condition at Discharge: Stable Discharge Diet: advance to your usual diet Activity: resume usual activities as tolerated - Forms/Instructions Additional Discharge Instructions: Follow up with PCP in 1week Exam - Constitutional General appearance: no acute distress - Head Head exam: Present: normal inspection - Respiratory Respiratory exam: Present: clear to auscultation bilaterally - Cardiovascular Cardiovascular exam: Present: regular rate and rhythm - GI/Abdominal GI/Abdominal exam: Present: normal bowel sounds - Extremities Exam Extremities exam: Present: other (advance rheumatoid changes in the UE, left UE swelling)
[2016-10-07] MEDS: KETOCONAZOLE 2% CREAM 30 GM TUBE TOP SCH (09:41)
[2016-10-07] MEDS: PANTOPRAZOLE 40 MG TABLET PO SCH (09:41)
[2016-10-07] MEDS: MAGNESIUM GLUCONATE 500 MG TABLET PO SCH (09:41)
[2016-10-07] MEDS: METOPROLOL TARTRATE 50 MG TABLET PO SCH (09:41)
[2016-10-07] MEDS: CARBOXYMETHYLCELLULOSE 1% OPH SOLN BOTH EYES SCH (09:43)
[2016-10-07 10:20] VITALS: BP 139/81
--- NOTE | 2016-10-07 11:45 | Ultrasound Report ---
Exam: Left Upper extremity venous Doppler/duplex ultrasound Comparison: None Clinical history: Left arm swelling Technique: Duplex scan of the left upper extremity veins using th B- mode/grayscale imaging and Dopplers spectral analysis and color flow. Findings: There is normal flow in the left internal jugular, subclavian, axillary, brachial, and cephalic veins. The left basilic vein not identified. No filling defects are identified with normal compression and augmentation. Major venous structures of the left upper extremity demonstrating normal course and caliber with normal color-flow study and spectral analysis. Impression: No evidence to suggest venous thrombosis within the left upper extremity. Basilic vein not identified. Ultrasound images were captured and stored. PROCEDURE INTERPRETED AT [facility] DEPARTMENT OF RADIOLOGY Final Report Signed by: Dr. Brittney Gonzales
== END 2016-10-07 13:15 | DRG 871 ==
LOC: EDUNIT# → EDBD → N.ED 16:42 → N.EDINP 17:20 → SUATTDRO 17:20 → N.5E 19:12
PROVIDERS: ADMIT Student in an Organized Health Care Education/Training Program; ATTEND Internal Medicine